=== PATIENT | female | born 1955 | race Caucasian/White ===

== ENCOUNTER 2018-08-25 12:04 | Observation (INO) ==
[2018-08-25] MEDS ORDERED: ONDANSETRON 4 MG/2 ML VIAL IV STA (13:09)
[2018-08-25] MEDS ORDERED: SODIUM CHLORIDE 0.9% 500 ML IV STA (13:09)
[2018-08-25 14:21] LABS: Basophils # 0.1 10*3/uL (0.0-0.2); Basophils % 0.6 % (0.0-0.8); Eosinophils # 0.1 10*3/uL (0.0-0.87); Eosinophils % 0.8 % (0.00-10.9); Hematocrit 38.6 VOL% (35.7-47.0); Hemoglobin 12.5 GM/DL (12.0-16.0); Immature Granulocytes % 0.6 %; Immature Granulocytes Absolute 0.06 #; Lymphocytes # 1.2 10*3/uL (1.4-4.0); Lymphocytes % 11.3 % (21.3-54.2); Mean Corpuscular HGB Conc 32.4 GM/DL (32-36); Mean Corpuscular Hemoglobin 29 PG (27-34); Mean Corpuscular Volume 88.7 FL (87-102); Mean Platelet Volume 9.4 FL (9.6-12.0); Monocytes # 0.9 10*3/uL (0.11-0.8); Monocytes % 8.5 % (1.7-12.7); Neutrophils % 78.2 % (38.7-73.9); Platelet Count 213 T/CUMM (130-400); Red Blood Count 4.35 MC/CUMM (3.8-5.5); Red Cell Distribution Width 12.2 % (9.3-17.3); White Blood Count 10.3 T/CUMM (4-12)
[2018-08-25 14:38] LABS: Albumin 3.7 G/DL (3.4-5.0); Bilirubin,Total 0.6 MG/DL (0.2-1.0); Calcium 9.2 MG/DL (8.5-10.1); Osmolality,Calculated 286.3 MOS/KG (273-304); Potassium 4.7 MMOL/L (3.5-5.1); Total Protein 6.6 G/DL (6.4-8.3)
[2018-08-25] MEDS ORDERED: HYDROmorphone 2 MG/1 ML VIAL IV PRN (18:54)
[2018-08-25] MEDS ORDERED: ONDANSETRON 4 MG/2 ML VIAL IV PRN (18:54)
[2018-08-25] MEDS: LACTATED RINGERS 1,000 ML IV SCH (23:00)
[2018-08-26 00:40] LABS: Apearance,Urine CLEAR (Clear); Bilirubin,Urine Negative (Negative); Blood, Urine Negative (Negative); Glucose,Urine (UA) Negative (Negative); Ketones,Urine Negative (Negative); Mucus,Urine Occasional /LPF (Occasional); Nitrite,Urine Negative (Negative); Protein,Urine Negative; RBC,Urine 1 /HPF (0-4); Squamous Epithelial Cell,Urine Occasional /HPF (0-10); Urine Color Yellow (Yellow); Urine Specific Gravity 1.016 (1.001-1.035); WBC,Urine 23 /HPF (0-6)
[2018-08-26 05:46] LABS: Eosinophils # 0.1 10*3/uL (0.0-0.87); Eosinophils % 1.9 % (0.00-10.9); Hematocrit 35.9 VOL% (35.7-47.0); Hemoglobin 11.8 GM/DL (12.0-16.0); Immature Granulocytes % 0.2 %; Immature Granulocytes Absolute 0.01 #; Lymphocytes # 1.3 10*3/uL (1.4-4.0); Lymphocytes % 30.9 % (21.3-54.2); Mean Corpuscular HGB Conc 32.9 GM/DL (32-36); Mean Corpuscular Hemoglobin 29 PG (27-34); Mean Corpuscular Volume 88.4 FL (87-102); Mean Platelet Volume 9.6 FL (9.6-12.0); Monocytes # 0.4 10*3/uL (0.11-0.8); Monocytes % 8.9 % (1.7-12.7); Neutrophils # 2.4 10*3/uL (1.4-7.4); Neutrophils % 57.1 % (38.7-73.9); Platelet Count 196 T/CUMM (130-400); Red Blood Count 4.06 MC/CUMM (3.8-5.5); Red Cell Distribution Width 12.1 % (9.3-17.3); White Blood Count 4.1 T/CUMM (4-12)
[2018-08-26 06:13] LABS: Bilirubin,Total 0.8 MG/DL (0.2-1.0); Calcium 8.5 MG/DL (8.5-10.1); Osmolality,Calculated 285.1 MOS/KG (273-304); Potassium 3.9 MMOL/L (3.5-5.1); Total Protein 5.8 G/DL (6.4-8.3)
[2018-08-26] MEDS ORDERED: PANTOPRAZOLE 40 MG TABLET PO SCH (09:00)
[2018-08-26] MEDS: LACTATED RINGERS 1,000 ML IV SCH (09:08)
[2018-08-26] MEDS ORDERED: BUPIVACAINE MPF 0.25% 30 ML VIAL ONE (09:21)
[2018-08-26] MEDS ORDERED: LIDOCAINE 1%/EPI INJ 20 ML VIAL ONE (09:21)
[2018-08-26] MEDS ORDERED: TISSUE ADHESIVE 1 EACH APPLICATOR TOP ONE (10:21)
[2018-08-26] MEDS ORDERED: ePHEDrine 50 MG/ML AMP ONE (10:54)
[2018-08-26] MEDS ORDERED: SEVOFLURANE 1 UNIT/15 MINUTE INH ONE (11:02)
[2018-08-26] MEDS ORDERED: PROPOFOL 200 MG/20 ML VIAL IV ONE (11:02)
[2018-08-26] MEDS ORDERED: KETOROLAC 30 MG/1 ML VIAL ONE (11:03)
[2018-08-26] MEDS ORDERED: fentaNYL 100 MCG/2 ML VIAL ONE (11:03)
[2018-08-26] MEDS ORDERED: GLYCOPYRROLATE 0.4 MG/2 ML VIAL ONE (11:03)
[2018-08-26] MEDS ORDERED: DEXAMETHASONE 10 MG/1 ML VIAL ONE (11:03)
[2018-08-26] MEDS ORDERED: ONDANSETRON 4 MG/2 ML VIAL ONE (11:03)
[2018-08-26] MEDS ORDERED: ACETAMINOPHEN 1,000 MG/100 ML VIAL IV ONE (11:03)
[2018-08-26] MEDS ORDERED: MIDAZOLAM 2 MG/2 ML VIAL ONE (11:03)
[2018-08-26] MEDS ORDERED: NEOSTIGMINE 10 MG/10 ML VIAL ONE (11:04)
[2018-08-26] MEDS ORDERED: LACTATED RINGERS 1,000 ML IV ONE (11:04)
[2018-08-26] MEDS ORDERED: ROCURONIUM 100 MG/10 ML VIAL IV ONE (11:04)
[2018-08-26] MEDS: CIPROFLOXACIN INJ 400 MG in PREMIX 1 EACH IV SCH ×2 (11:39→22:27)
[2018-08-26 16:12] LABS: Hepatitis A Ab IgM Quant 0.17 Index; Hepatitis A Ab IgM Result Negative (Negative); Hepatitis B Core IgM Quant < 0.05 Index; Hepatitis B Core IgM Result Negative (Negative); Hepatitis B Surface Ag Quant < 0.10 Index; Hepatitis B Surface Ag Result Negative (Negative); Hepatitis C Virus Ab Quant 0.02 Index; Hepatitis C Virus Ab Result Negative (Negative)
[2018-08-26] MEDS: clonazePAM 0.5 MG TABLET PO SCH (22:01)
[2018-08-26] MEDS: PANTOPRAZOLE 40 MG TABLET PO SCH (22:26)
[2018-08-26] MEDS: AMITRIPTYLINE 50 MG TABLET PO SCH (22:27)
[2018-08-27] MEDS: LACTATED RINGERS 1,000 ML IV SCH ×5 (00:20→22:46)
[2018-08-27 05:24] LABS: Alanine Aminotransferase 369 U/L (13-56); Albumin 2.8 G/DL (3.4-5.0); Alkaline Phosphatase 90 U/L (45-117); Aspartate Amino Transferase 190 U/L (0-37); Bilirubin,Indirect 0.3 MG/DL (0.0-1.0); Bilirubin,Total < 0.39 MG/DL (0.2-1.0); Total Protein 5.6 G/DL (6.4-8.3)
[2018-08-27] MEDS: CIPROFLOXACIN INJ 400 MG in PREMIX 1 EACH IV SCH ×2 (09:01→21:21)
[2018-08-27] MEDS: PANTOPRAZOLE 40 MG TABLET PO SCH ×2 (09:02→21:18)
[2018-08-27] MEDS: ACETAMINOPHEN 325 MG TABLET PO PRN ×2 (09:02→21:18)
[2018-08-27] MEDS: clonazePAM 0.5 MG TABLET PO SCH (09:02)
[2018-08-27] MEDS: FLUoxetine 20 MG CAPSULE PO SCH (09:02)
[2018-08-27] MEDS: AMITRIPTYLINE 50 MG TABLET PO SCH (21:18)
[2018-08-28] MEDS: LACTATED RINGERS 1,000 ML IV SCH ×2 (02:45→06:20)
[2018-08-28] MEDS ORDERED: LIDOCAINE 100 MG/5 ML SYRINGE ONE (09:00)
[2018-08-28] MEDS ORDERED: PROPOFOL 200 MG/20 ML VIAL IV ONE (09:00)
[2018-08-28] MEDS: FLUoxetine 20 MG CAPSULE PO SCH (09:52)
[2018-08-28] MEDS: PANTOPRAZOLE 40 MG TABLET PO SCH (09:52)
[2018-08-28] MEDS: clonazePAM 0.5 MG TABLET PO SCH (09:52)
[2018-08-28] MEDS: CIPROFLOXACIN INJ 400 MG in PREMIX 1 EACH IV SCH (09:53)
[2018-08-28 10:58] LABS: Albumin 3.5 G/DL (3.4-5.0); Bilirubin,Direct 0.14 MG/DL (0.0-0.20); Bilirubin,Indirect 0.4 MG/DL (0.0-1.0); Bilirubin,Total 0.5 MG/DL (0.2-1.0); Total Protein 6.5 G/DL (6.4-8.3)
[2018-08-28 13:38] VITALS: BP 138/75
== END 2018-08-28 13:15 | disposition home or self-care (01) ==
LOC: N.EDINP 12:04 → N.ED 12:04 → N.3E 16:09
PROVIDERS: ADMIT Surgery; ATTEND Surgery
PROC: LAPCHOL (2018-08-26 09:35)